=== PATIENT | male | born 1950 | race Caucasian/White ===

== ENCOUNTER 2017-05-29 13:48 | Day surgery (SDC) | payer MEDICARE, BC ==
[~2017-05-29] VITALS: Ht 175.3 cm; Wt 90.0 kg
[2017-05-29] MEDS ORDERED: FENTANYL PF 100 MCG/2ML ONE ×3 (14:12→16:20)
[2017-05-29] MEDS ORDERED: MIDAZOLAM 1 MG/ML, 2ML ONE (14:12)
[2017-05-29] MEDS ORDERED: LACTATED RINGERS 1,000 ML IV SCH (14:32)
[2017-05-29 15:01] VITALS: BP 141/80
[2017-05-29] MEDS ORDERED: ONDANSETRON 2MG/ML, 2ML ONE (15:10)
[2017-05-29] MEDS ORDERED: PROPOFOL 10 MG/ML, 20ML ONE (15:10)
[2017-05-29] MEDS ORDERED: KETOROLAC 30 MG/1 ML ONE (15:10)
[2017-05-29] MEDS ORDERED: CEFAZOLIN 1,000 MG ONE (15:10)
[2017-05-29] MEDS ORDERED: DEXAMETHASONE 4 MG/ML, 1ML ONE (15:10)
[2017-05-29] MEDS ORDERED: ESCI10TA10 PO (15:15)
[2017-05-29] MEDS ORDERED: SYNTHROID (15:15)
[2017-05-29] MEDS ORDERED: ATOR20TA9 PO (15:15)
[2017-05-29] MEDS ORDERED: FENO135C PO (15:15)
[2017-05-29] MEDS ORDERED: AMLO10TA4 PO (15:15)
[2017-05-29] MEDS ORDERED: PROMETHAZINE 25 MG/ML, 1ML IV PRN (16:00)
[2017-05-29] MEDS ORDERED: MIDAZOLAM 1 MG/ML, 2ML IV PRN (16:00)
[2017-05-29] MEDS ORDERED: ONDANSETRON 2MG/ML, 2ML IVPush PRN (16:00)
[2017-05-29] MEDS ORDERED: HYDROmorphone 1 MG/ML, 1ML IV PRN (16:00)
[2017-05-29] MEDS ORDERED: OXYcodone 5 MG/5 ML ORAL.SOL UDC PO PRN (16:00)
[2017-05-29] MEDS ORDERED: ACETAMINOPHEN 325 MG TABLET PO PRN (16:00)
[2017-05-29] MEDS ORDERED: OMNIPAQUE 350 MG/ML, 50 ML BOTTLE ONE (16:08)
[2017-05-29] MEDS ORDERED: OXYcodone 5 MG/5 ML ORAL.SOL UDC ONE (16:20)
[2017-05-29] MEDS ORDERED: ACETAMINOPHEN 325 MG TABLET ONE (16:24)
[2017-05-29] MEDS: FENTANYL PF 100 MCG/2ML IV PRN ×3 (16:39→16:54)
[2017-05-29] MEDS ORDERED: OXYcodone/APAP 10/325MG TABLET ONE (18:13)
[2017-05-29] MEDS ORDERED: OXYcodone/APAP 10/325MG TABLET PO PRN (18:30)
== END 2017-05-29 18:45 ==
LOC: OR 13:48
PROVIDERS: ATTEND Urology
DX: N20.1 Calculus of ureter (principal); I10 Essential (primary) hypertension; E11.9 Type 2 diabetes mellitus without complications; E78.00 Pure hypercholesterolemia, unspecified; K21.9 Gastro-esophageal reflux disease without esophagitis; Z87.442 Personal history of urinary calculi; Z98.890 Other specified postprocedural states; Z81.8 Family history of other mental and behavioral disorders
CPT/HCPCS: 52353; 74420; 81003; 82360; 88300; 93005; C1726; C1758; C1769; J0690; J1100; J1885; J2250; J2405; J2704; J3010; J7120; Q9967